=== PATIENT | female | born 1980 | race Caucasian/White ===

== ENCOUNTER 2024-06-12 20:45 | Inpatient (IN) | payer BC, SELFPAY ==
[2024-06-12 20:58] VITALS: BP 152/84; PULSE 85; RESP 18; TEMP 37.2; O2SAT 97; BMI 31.6
[2024-06-12] MEDS: ONDANSETRON 4 MG/2 ML INJ IV (21:30)
[2024-06-12] MEDS: KETOROLAC 30 MG/ML VIAL 15 MG IV (21:31)
[2024-06-12 21:33] LABS: Add Manual Diff / Slide Review NO; Basophils Absolute Auto 0 /uL (0-100); Basophils Percent Auto 0.3 % (0-2); Eosinophils Absolute Auto 0 /uL (0-450); Eosinophils Percent Auto 0.1 % (2-4); Hematocrit 43.6 % (36-46); Hemoglobin 14.6 g/dL (12.0-16.0); Lymphocytes Absolute Auto 1400 /uL (1100-4500); Lymphocytes Percent Auto 8.6 % (25-40); Mean Corpuscular HGB Conc 33.4 % (30-36); Mean Corpuscular Hemoglobin 29.2 PG (26-34); Mean Corpuscular Volume 87.4 fL (80-100); Monocytes Absolute Auto 400 /uL (0-900); Monocytes Percent Auto 2.6 % (3-14); Neutrophils Absolute Auto 14000 /uL (1500-7000); Neutrophils Percent Auto 88.4 % (50-75); Platelet Count 480 X10^3/uL (150-400); Red Blood Cell Count 4.99 X10^6/uL (4.0-5.2); Red Cell Distribution Width 13.2 % (11.6-14.8); White Blood Cell Count 15.9 X10^3/uL (4.5-11.0)
[2024-06-12 21:44] LABS: Alanine Aminotransferase 28 IU/L (<35); Albumin 4.7 g/dL (3.5-5.0); Albumin Globulin Ratio 1.2 (1.0-2.8); Alkaline Phosphatase 98 U/L (38-126); Aspartate Aminotransferase 30 IU/L (14-36); BUN Creatinine Ratio 21.7 (6-22); Bilirubin Total 0.7 mg/dL (0.2-1.3); Blood Urea Nitrogen 15 mg/dL (7-17); Calcium 9.2 mg/dL (8.4-10.2); Carbon Dioxide 22 mmol/L (22-32); Chloride 101 mmol/L (98-107); Estimated Glomerular Filt Rate > 60 mL/min (>60); Globulin 3.9 g/dL (1.7-4.1); Glucose 132 mg/dL (70-100); HEMOLYSIS < 15 (0-50); Lipase 42 U/L (23-300); Potassium 3.8 mmol/L (3.4-5.1); Sodium 137 mmol/L (137-145); Total Protein 8.6 g/dL (6.3-8.2)
[2024-06-12 21:54] LABS: Bacteria Urine Few (2-10); RBC Urine 0-1/HPF (0-5/HPF); Squamous Epithelial Cell Urine 0-1 /HPF (0-5/HPF); Urine Volume 10mL (spun); WBC Urine 0-1/HPF (0-5/HPF)
[2024-06-12 21:55] LABS: Culture Indicated Urine Cult Not Indicated; Mucus Urine 2+ (Negative)
[2024-06-12 23:02] VITALS: BP 118/80; PULSE 100; RESP 18; O2SAT 99
--- NOTE | 2024-06-12 23:11 | DI.CT.S_ITS ---
PROCEDURE: CT ABDOMEN PELVIS W CON INDICATIONS: abdominal pain with nausea/vomiting TECHNIQUE: After the administration of intravenous contrast, axial sections acquired from the lung bases to the pubic symphysis. Coronal and sagittal reformats were performed. For radiation dose reduction, the following was used: automated exposure control, adjustment of mA and/or kV according to patient size. COMPARISON: None. FINDINGS: Image quality: Diagnostic. Peritoneum: No pneumoperitoneum or ascites. Bones: No acute osseous abnormality. Lower Chest: Small-moderate hiatal hernia. Liver: Normal in size and contour. Gallbladder: No stones or pericholecystic fluid. Biliary tree: No intrahepatic or extrahepatic biliary ductal dilatation. Pancreas: Within normal limits. Spleen: Normal in size and contour. Kidneys: No hydronephrosis or obstructive urolithiasis. Adrenals: No adrenal nodularity. Bladder: Normal in size and wall thickness. : Anteverted uterus with endometrial fluid, likely physiologic. Heterogenous posterior myometrium, likely secondary to intramural fibroids (5/80). Right 2.6 cm Bartholin gland cyst (2/160). Stomach: Normal in size and contour. Bowel: Multiple fluid-filled and dilated small bowel loops up to the 2.5 cm with transition points in the right central abdomen (2/88; 4/50-51). There is a C-shaped loop of small bowel in the right lower quadrant with adjacent mesenteric edema. No bowel wall non enhancement. Appendix surgically absent. Lymph Nodes: No retroperitoneal, mesenteric, or inguinal lymphadenopathy. Vascular: No abdominal aortic aneurysm. The visualized arterial vasculature is patent. Soft Tissues: 3.9 cm right breast lobulated mass (2/20). IMPRESSION: 1. Small-bowel obstruction with transition points in the right central abdomen, along with a possible, developing closed-loop obstruction in the right lower quadrant. 2. Small-moderate hiatal hernia. 3. Right breast 3.9 cm lobulated mass. Diagnostic mammogram and or ultrasound would be recommended for further evaluation. These findings were communicated via telephone to the ordering provider Dr. Peterson, by Jacob Bishop MD on 06/13/2024 at 12:51 a.m.. Dictated by: Jacob Bishop M.D. on 06/13/2024 at 0:42 Approved by: Jacob Bishop M.D. on 06/13/2024 at 0:51
[2024-06-13] VITALS (21 sets, daily range): BP systolic 119–155; BP diastolic 60–94; PULSE 75–136; RESP 10–18; TEMP 37–37.3; O2SAT 92–98; BMI 32.8
--- NOTE | 2024-06-13 | DI.RAD.S_ITS ---
PROCEDURE: XR GASTROGRAFIN CHALLENGE COMPARISON: None. INDICATIONS: SBO FINDINGS: NG tube present. There is contrast opacifying the partially distended stomach. There are numerous loops of distended small bowel which are opacified. There is no passage of contrast into the colon. IMPRESSION: No evidence of passage of contrast into the colon. This may indicate early, partial, or complete small bowel obstruction. Consider follow-up plain film in the morning. Dictated by: Tianna López M.D. on 06/13/2024 at 18:08 Approved by: Tianna López M.D. on 06/13/2024 at 18:09
--- NOTE | 2024-06-13 01:26 | ED.ABDPAIN ---
HPI - Abdominal Pain General Chief Complaint: Abdominal Pain Stated Complaint: abd pain vomiting Time Seen by Provider: 06/12/24 23:42 Source: patient Mode of arrival: Ambulatory History of Present Illness HPI narrative: 44-year-old female has nausea and vomiting and central abdominal pain since early yesterday morning, now approaching 26 hours, earlier yesterday morning was seen and evaluated at emergency department [facility], per their report had ultrasound of the gallbladder and some labs which were unrevealing. Since then patient has had increasing abdominal discomfort, and more frequent nausea with emesis nonbloody, no black appearance to emesis, last bowel movement yesterday, no black or red stools. No fevers or chills. No injury or trauma. She does not take blood thinner medications. She has had prior appendectomy 25 years ago, otherwise denies any abdominopelvic surgeries. Does not recall upper or lower endoscopies. Related Data Home Medications Medication Instructions Recorded Confirmed Adderall XR 15 mg PO DAILY 06/13/24 06/13/24 Allergies Allergy/AdvReac Type Severity Reaction Status Date / Time No Known Drug Allergies Allergy Unverified 06/24/21 08:41 Patient History Medical History (Updated 06/13/24 @ 00:53 by Osmany Peterson MD) PTSD (post-traumatic stress disorder) (~2008) Anxiety (~2019) Surgical History (Updated 06/23/21 @ 19:03 by Esther Saenz) Anesthesia History of appendectomy (~1994) Family History (Updated 06/23/21 @ 19:04 by Esther Saenz) Grandfather Skin cancer Grandfather Stroke Social History household members: spouse Smoking Status: Current every day smoker alcohol intake: current Smoking Status: Current every day smoker tobacco type: vaping Exam Narrative Exam Narrative: GENERAL: Well-developed patient, in mild distress. HEAD: Atraumatic. Normocephalic. EYES: Pupils equal round and reactive. Extraocular motions intact. No scleral icterus. No injection or drainage. ENT: Nose without bleeding, purulent drainage.No obvious facial swelling. Airway patent. NECK: Trachea midline. Non tender CARDIOVASCULAR: Regular rate and rhythm without murmurs, gallops, or rubs. RESPIRATORY: Clear to auscultation. Breath sounds equal bilaterally. No wheezes, rales, or rhonchi. GASTROINTESTINAL: Abdomen soft, nondistended, mild diffuse tenderness, no obvious vental hernias, no scars obvious though she has reportedly has had her appendix out long ago. EXTREMITIES: No edema or joint tenderness. BACK: Nontender without deformity or crepitance. No flank tenderness. NEURO: AOx3. Motor functions grossly nonfocal SKIN: No rash or erythema of visible areas Initial Vital Signs Initial Vital Signs: Vital Signs Temperature 98.9 F 06/12/24 20:58 Pulse Rate 85 06/12/24 20:58 Respiratory Rate 18 06/12/24 20:58 Blood Pressure 152/84 H 06/12/24 20:58 Pulse Oximetry 97 06/12/24 20:58 Oxygen Delivery Method Room Air 06/12/24 20:58 Course Orders Ordered: Acetaminophen (Acetaminophen 325 Mg Tablet) 650 mg PO Q6H PRN PRN Reason: Fever/Mild Pain (1-3) Benzocaine/Butamben/Tetracaine HCl (Tetracaine/Benzocaine/Butamben (Cetacaine) Bottle) 1 spray TOP PRN PRN PRN Reason: Sore Throat Hydromorphone HCl (Hydromorphone 0.5 Mg Inj) 0.5 mg IV Q2H PRN PRN Reason: Pain, Severe (7-10) Last Admin: 06/13/24 15:36 Dose: 0.5 mg Documented By: KAYLAN Sodium Chloride (Normal Saline 0.9%) 1,000 mls @ 100 mls/hr IV CONT DARRIAN Last Infusion: 06/13/24 13:44 Dose: Infused Documented By: Infusion: 06/13/24 13:43 Dose: Infused Documented By: Admin: 06/13/24 03:20 Dose: 100 mls/hr Documented By: JACQUELYN Ketorolac Tromethamine (Ketorolac 30 Mg/Ml Vial) 15 mg IV Q8H PRN PRN Reason: Pain, Moderate (4-6) Stop: 06/18/24 14:57 Last Admin: 06/13/24 15:36 Dose: 15 mg Documented By: ESV Lidocaine HCl (Lidocaine Viscous 2% 15 Ml Solution) 15 ml PO Q8HR PRN PRN Reason: Sore Throat Last Admin: 06/13/24 09:12 Dose: 15 ml Documented By: NIKKI Morphine Sulfate (Morphine 4 Mg/Ml Inj) 3 mg IV Q2HR PRN PRN Reason: Pain, Severe (7-10) Last Admin: 06/13/24 09:12 Dose: 3 mg Documented By: Admin: 06/13/24 02:39 Dose: 3 mg Documented By: Morphine Sulfate (Morphine 2 Mg/Ml Inj) 2 mg IV Q4HR PRN PRN Reason: Pain, Moderate (4-6) Last Admin: 06/13/24 13:30 Dose: 2 mg Documented By: Admin: 06/13/24 06:18 Dose: 2 mg Documented By: JACQUELYN Naloxone HCl (Naloxone 0.4 Mg/Ml Vial) 0.2 mg IV Q2MIN PRN PRN Reason: Pain, Severe (7-10) Ondansetron HCl (Ondansetron 4 Mg/2 Ml Inj) 4 mg IV Q2HR PRN PRN Reason: nausea and/or vomiting Discontinued Medications Hydromorphone HCl (Hydromorphone 0.5 Mg Inj) 0.5 mg IV NOW ONE Stop: 06/13/24 02:19 Last Admin: 06/13/24 03:26 Dose: 0.5 mg Documented By: JACQUELYN Sodium Chloride (Normal Saline 0.9%) 1,000 mls @ 1,000 mls/hr IV BOLUS ONE Stop: 06/13/24 03:21 Last Admin: 06/13/24 03:30 Dose: Not Given Documented By: JACQUELYN Ketorolac Tromethamine (Ketorolac 30 Mg/Ml Vial) 15 mg IV NOW ONE Stop: 06/12/24 21:28 Last Admin: 06/12/24 21:31 Dose: 15 mg Documented By: TAYO Lidocaine HCl (Lidocaine Jelly 2% 5 Ml) 1 applic TOP PRN PRN PRN Reason: Pain, Mild (1-3) Lorazepam (Lorazepam 2 Mg/Ml Inj) 1 mg IV NOW ONE Stop: 06/13/24 01:33 Last Admin: 06/13/24 01:55 Dose: 1 mg Documented By: Naloxone HCl (Naloxone 0.4 Mg/Ml Vial) 0.2 mg IV Q2MIN PRN PRN Reason: Opiate Reversal Ondansetron HCl (Ondansetron 4 Mg/2 Ml Inj) 4 mg IV NOW PRN PRN Reason: Nausea And Vomiting Last Admin: 06/12/24 21:30 Dose: 4 mg Documented By: TAYO Ondansetron HCl (Ondansetron 4 Mg Odt) 4 mg PO NOW PRN PRN Reason: Nausea And Vomiting Ondansetron HCl (Ondansetron 4 Mg/2 Ml Inj) 4 mg IV Q8HR PRN PRN Reason: Nausea And Vomiting Last Admin: 06/13/24 09:12 Dose: 4 mg Documented By: NIKKI Ondansetron HCl (Ondansetron 4 Mg/2 Ml Inj) 4 mg IV NOW ONE Stop: 06/13/24 13:48 Last Admin: 06/13/24 14:44 Dose: 4 mg Documented By: NIKKI Vital Signs Vital signs: Vital Signs - 8 hr 06/12/24 20:58 06/12/24 23:02 06/13/24 01:15 Temperature 98.9 F Pulse Rate 85 100 H Respiratory Rate 18 18 Blood Pressure 152/84 H 118/80 Pulse Oximetry 97 99 98 Oxygen Delivery Method Room Air Room Air 06/13/24 01:16 06/13/24 01:16 06/13/24 01:30 Temperature Pulse Rate 122 H 97 H Respiratory Rate Blood Pressure 155/91 H Pulse Oximetry 97 97 Oxygen Delivery Method 06/13/24 01:30 06/13/24 02:22 06/13/24 02:22 Temperature Pulse Rate 136 H Respiratory Rate 18 Blood Pressure 144/81 H 132/81 Pulse Oximetry 93 Oxygen Delivery Method 06/13/24 02:23 Temperature Pulse Rate 132 H Respiratory Rate Blood Pressure Pulse Oximetry 93 Oxygen Delivery Method Room Air MDM - Abdominal Pain Lab Data Attestation: I reviewed the patient's lab results. Lab results narrative: White blood cell count 86821, hemoglobin 14.6, platelets 480,000. Basic metabolic panel unremarkable. BUN 15 with creatinine 0.69 normal. Liver functions lactate normal. Urinalysis negative for infection but shows ketones without glucosuria. Urine test negative. 06/13/24 05:55 06/13/24 05:55 Labs: Lab Results 06/12/24 06/12/24 06/13/24 Range/Units 21:25 21:36 00:15 WBC 15.9 H (4.5-11.0) X10^3/uL RBC 4.99 (4.0-5.2) X10^6/uL Hgb 14.6 (12.0-16.0) g/dL Hct 43.6 (36-46) % MCV 87.4 (80-100) fL MCH 29.2 (26-34) PG MCHC 33.4 (30-36) % RDW 13.2 (11.6-14.8) % Plt Count 480 H (150-400) X10^3/uL Neut % (Auto) 88.4 H (50-75) % Lymph % (Auto) 8.6 L (25-40) % [place] % (Auto) 2.6 L (3-14) % Eos % (Auto) 0.1 L (2-4) % Baso % (Auto) 0.3 (0-2) % Neut # (Auto) 61445 H (8917-8417) /uL Lymph # (Auto) 1400 (3085-4209) /uL [place] # (Auto) 400 (0-900) /uL Eos # (Auto) 0 (0-450) /uL Baso # (Auto) 0 (0-100) /uL Sodium 137 (137-145) mmol/L Potassium 3.8 (3.4-5.1) mmol/L Chloride 101 (98-107) mmol/L Carbon Dioxide 22 (22-32) mmol/L BUN 15 (7-17) mg/dL Creatinine 0.69 (0.52-1.04) mg/dL Estimated GFR > 60 (>60) mL/min BUN/Creatinine Ratio 21.7 (6-22) Glucose 132 H (70-100) mg/dL Lactate 1.0 (0.7-2.1) mmol/L Calcium 9.2 (8.4-10.2) mg/dL Total Bilirubin 0.7 (0.2-1.3) mg/dL AST 30 (14-36) IU/L ALT 28 (<35) IU/L Alkaline Phosphatase 98 (38-126) U/L Total Protein 8.6 H (6.3-8.2) g/dL Albumin 4.7 (3.5-5.0) g/dL Globulin 3.9 (1.7-4.1) g/dL Albumin/Globulin Ratio 1.2 (1.0-2.8) Lipase 42 (23-300) U/L Urine RBC 0-1/hpf (0-5/HPF) Urine WBC 0-1/hpf (0-5/HPF) Ur Squamous Epith Cells 0-1 /hpf (0-5/HPF) Urine Bacteria Few (2-10) H (None) Urine Mucus 2+ H (Negative) Ur Culture Indicated? Cult not indicated Vol Urine Centrifuged 10ml (spun) Point of care testing: Point of Care Testing Test Results Negative Urine Dip Bedside Urine Glucose Negative Bedside Urine Bilirubin - Negative Bedside Urine Ketone +++ 80 Urine Specific [place] 1.03 Bedside Urine Occult Blood +/- Bedside Urine pH 6 Bedside Urine Protein + 30 Bedside Urine Urobilinogen - Negative Bedside Urine Nitrite - Negative Bedside Urine Leukocytes - Negative Esterase Imaging Data CT scan - abdomen/pelvis: Radiologist's Impression: [address] [address] [address] Scan Report Signed Patient: Edna Medina MR#: [id number] : 1980 Acct:[id number] Age/Sex: 44 / F Date of Service: 06/12/24 Loc: ED Accession Number: [id number] Procedure: CT abdomen pelvis w con Ordering Provider: Osmany Peterson MD PROCEDURE: CT ABDOMEN PELVIS W CON INDICATIONS: abdominal pain with nausea/vomiting TECHNIQUE: After the administration of intravenous contrast, axial sections acquired from the lung bases to the pubic symphysis. Coronal and sagittal reformats were performed. For radiation dose reduction, the following was used: automated exposure control, adjustment of mA and/or kV according to patient size. COMPARISON: None. FINDINGS: Image quality: Diagnostic. Peritoneum: No pneumoperitoneum or ascites. Bones: No acute osseous abnormality. Lower Chest: Small-moderate hiatal hernia. Liver: Normal in size and contour. Gallbladder: No stones or pericholecystic fluid. Biliary tree: No intrahepatic or extrahepatic biliary ductal dilatation. Pancreas: Within normal limits. Spleen: Normal in size and contour. Kidneys: No hydronephrosis or obstructive urolithiasis. Adrenals: No adrenal nodularity. Bladder: Normal in size and wall thickness. : Anteverted uterus with endometrial fluid, likely physiologic. Heterogenous posterior myometrium, likely secondary to intramural fibroids (5/80). Right 2.6 cm Bartholin gland cyst (2/160). Stomach: Normal in size and contour. Bowel: Multiple fluid-filled and dilated small bowel loops up to the 2.5 cm with transition points in the right central abdomen (; /50-51). There is a C-shaped loop of small bowel in the right lower quadrant with adjacent mesenteric edema. No bowel wall non enhancement. Appendix surgically absent. Lymph Nodes: No retroperitoneal, mesenteric, or inguinal lymphadenopathy. Vascular: No abdominal aortic aneurysm. The visualized arterial vasculature is patent. Soft Tissues: 3.9 cm right breast lobulated mass (06/14). IMPRESSION: 1. Small-bowel obstruction with transition points in the right central abdomen, along with a possible, developing closed-loop obstruction in the right lower quadrant. 2. Small-moderate hiatal hernia. 3. Right breast 3.9 cm lobulated mass. Diagnostic mammogram and or ultrasound would be recommended for further evaluation. These findings were communicated via telephone to the ordering provider Dr. Peterson, by Jacob Bishop MD on 06/13/2024 at 12:51 a.m.. Dictated by: Jacob Bishop M.D. on 06/13/2024 at 0:42 Approved by: Jacob Bishop M.D. on 06/13/2024 at 0:51 MDM Narrative Medical decision making narrative: 44-year-old female with nausea and vomiting, abdominal pain, evaluated outside facility yesterday morning with ultrasound gallbladder and labs reportedly unrevealing, having increasing abdominal pain and recurrent episodes of nonbloody emesis. Afebrile, sirs screen negative. Central abdominal discomfort, no obvious periumbilical or ventral hernia. Labs pending. CT abdomen and pelvis requested. IV Zofran, IV fluid bolus. Lab summary: White blood cell count 65991, hemoglobin 14.6, platelets 480,000. Basic metabolic panel unremarkable. BUN 15 with creatinine 0.69 normal. Liver functions lactate normal. Urinalysis negative for infection but shows ketones without glucosuria. Urine test negative. Lactate normal. CT abdomen and pelvis. Impressions: ?Small bowel obstruction with transition points in the right central abdomen, along with a possible developing closed loop obstruction in the right lower quadrant. Small moderate hiatal hernia. Right breast 3.9 cm lobulated mass. Diagnostic mammogram or ultrasound would be recommended for further evaluation..? See radiology report. Lactate sent was normal. NG tube placed successfully with brown liquid fluid. Still having nausea, also we would like something for pain, repeat IV Zofran, add IV Dilaudid. We will contact surgery for consultation. Patient made aware of right-sided breast mass, history of fibroadenoma known, they will follow up further. 219, case discussed with surgery Dr. Hanna, requests admission to hospitalist service with NG tube, he or Dr. Hernandez surgery will further consult. We will contact hospitalist [phone], case discussed with hospitalist Dr Ortiz who accepts patient for admission to inpatient Critical Care Time Critical Care Time Critical Care Time: Yes Total Critical Care Time: 35 Attestation: The high probability of a clinically significant, sudden or life threatening deterioration of the [gastrointestinal, abdominopelvic] system(s) required my full and direct attention, intervention and personal management. The aggregate critical care time was [35] minutes. This time is in addition to time spent performing reported procedures but includes the following: [x] Data Review and interpretation [x] Patient assessment and monitoring of vital signs [x] Documentation [x] Medication orders and management Discharge Plan Departure Patient Disposition: Admitted As Inpatient Clinical Impression: Small bowel obstruction, Breast lesion Admit Date/Time: 06/13/24 02:31 Admit Provider: Evaristo Ortiz
--- NOTE | 2024-06-13 01:37 | DI.RAD.S_ITS ---
PROCEDURE: XR CHEST 1V INDICATIONS: NG placement TECHNIQUE: One view of the chest was acquired. COMPARISON: None. FINDINGS: Surgical changes and devices: Gastric tube side port projects over the GE junction. Lungs and pleura: Lungs are clear. No pleural effusions or pneumothorax. Mediastinum: Mediastinal contours appear normal. Heart size is normal. Bones and chest wall: No suspicious bony lesions. Overlying soft tissues appear unremarkable. IMPRESSION: Gastric tube side port projects over the GE junction. Recommend advancement by 5 cm. Agree with preliminary report. Dictated by: Hever Cochran M.D. on 06/13/2024 at 8:53 Approved by: Hever Cochran M.D. on 06/13/2024 at 8:54
[2024-06-13] MEDS: LORazepam 2 MG/ML INJ 1 MG IV (01:55)
[2024-06-13] MEDS: MORPHINE 4 MG/ML INJ 3 MG IV ×2 (02:39→09:12)
--- NOTE | 2024-06-13 02:39 | DI.RAD.S_ITS ---
PROCEDURE: XR CHEST 1V INDICATIONS: ng confirmation TECHNIQUE: One view of the chest was acquired. COMPARISON: [facility], , XR CHEST 1V, 06/13/2024, 1:35. FINDINGS: Surgical changes and devices: Enteric tube with tip and side port projecting over the expected location of the stomach. Lungs and pleura: Lungs are clear. No pleural effusions or pneumothorax. Mediastinum: Mediastinal contours appear normal. Heart size is normal. Bones and chest wall: No suspicious bony lesions. Overlying soft tissues appear unremarkable. IMPRESSION: Enteric tube with tip and side port projecting over the expected location of the stomach. Dictated by: Jered Salinas M.D. on 06/13/2024 at 9:20 Approved by: Jered Salinas M.D. on 06/13/2024 at 9:21
[2024-06-13] MEDS: SODIUM CHLORIDE 0.9% 1,000 ML 100 ML IV ×2 (03:20→22:45)
--- NOTE | 2024-06-13 03:25 | DI.RAD.S_ITS ---
PROCEDURE: XR CHEST 1V INDICATIONS: NG placement TECHNIQUE: One view of the chest was acquired. COMPARISON: [facility], CR, XR CHEST 1V, 06/13/2024, 2:38. [facility], CR, XR CHEST 1V, 06/13/2024, 1:35. FINDINGS: Surgical changes and devices: Enteric tube with tip and side port projecting over the expected location of the stomach. Lungs and pleura: Lungs are clear. No pleural effusions or pneumothorax. Mediastinum: Mediastinal contours appear normal. Heart size is normal. Bones and chest wall: No suspicious bony lesions. Overlying soft tissues appear unremarkable. IMPRESSION: Enteric tube appears appropriately position. No acute cardiopulmonary process. Findings are concordant with preliminary interpretation provided by [facility]. Dictated by: Jered Salinas M.D. on 06/13/2024 at 9:21 Approved by: Jered Salinas M.D. on 06/13/2024 at 9:22
[2024-06-13] MEDS: HYDROMORPHONE 0.5 MG INJ IV ×3 (03:26→17:39)
--- NOTE | 2024-06-13 04:19 | PC.NURSE ---
0300 Patient admitted room 212 accompanied by her spouse Kevin. Diagnosed with SBO, ER July RN. Called to advance NGT to 5-7 cm. Jorge ST[employer]BOARD ARTIST came to assist & he advanced NGT to 5 cm & CXR done. C/O pain 11/01 even after the Morphine in ER. 0.5 mg. Dilaudid admin. & reported pain is improving with Dilaudid. Having difficulty speaking due to NGT, given a white board to communicate with the staff. Oriented to her room call light, TV & bed controls. Instructed not not get OOB without any assistance, call light within reached. Denies any fall for the past 3 months, will continue POC & monitor.
--- NOTE | 2024-06-13 05:46 | PM.HP.1 ---
History of Present Illness History of Present Illness Chief complaint: abd pain vomiting Narrative: 44-year-old female with past medical history of appendectomy done 25 years ago and a known right breast mass presents with a complaint of nausea, vomiting and abdominal pain. Per the patient's report, the patient was seen at [facility] ER yesterday. The patient had an ultrasound the gallbladder and some lab work which were reported as to be negative. The patient went home and continue have nausea non bloody vomiting as well as abdominal pain. The patient denies any fever, GI bleed, nausea chest pain, shortness of breath, diarrhea or syncope. In the emergency room, the patient was hemodynamically stable. Labs shows a WBC of 15,[address] abdomen shows signs of small bowel obstruction. The patient was given IV fluid and IV antibiotic emetics. General surgery consulted and recommended to admit the patient here. NG tube was also placed. [facility] Medical History (Updated 06/13/24 @ 00:53 by Osamny Peterson MD) PTSD (post-traumatic stress disorder) (~2008) Anxiety (~2019) Surgical History (Updated 06/23/21 @ 19:03 by Esther Saenz) Anesthesia History of appendectomy (~1994) Family History (Updated 06/23/21 @ 19:04 by Esther Saenz) Grandfather Skin cancer Grandfather Stroke Social History household members: spouse Smoking Status: Current every day smoker alcohol intake: current Meds Home Medications and Allergies Home Medications Medication Instructions Recorded Confirmed Type Adderall XR 15 mg PO DAILY 06/13/24 06/13/24 History Allergies Allergy/AdvReac Type Severity Reaction Status Date / Time No Known Drug Allergies Allergy Unverified 06/24/21 08:41 Review of Systems Review of Systems ROS: Yes All systems reviewed with the patient and are negative except as otherwise documented Exam Vital Signs (past 8 hours): - 06/12/24 23:02 06/13/24 01:15 06/13/24 01:16 Temperature Pulse Rate 100 H 122 H Respiratory Rate 18 Blood Pressure 118/80 Pulse Oximetry 99 98 97 Oxygen Delivery Method Room Air 06/13/24 01:16 06/13/24 01:30 06/13/24 01:30 Temperature Pulse Rate 97 H Respiratory Rate 18 Blood Pressure 155/91 H 144/81 H Pulse Oximetry 97 Oxygen Delivery Method 06/13/24 02:22 06/13/24 02:22 06/13/24 02:23 Temperature Pulse Rate 136 H 132 H Respiratory Rate Blood Pressure 132/81 Pulse Oximetry 93 93 Oxygen Delivery Method Room Air 06/13/24 03:00 Temperature 99.1 F Pulse Rate 117 H Respiratory Rate 18 Blood Pressure 136/81 Pulse Oximetry 94 Oxygen Delivery Method Oxygen Delivery Method Room Air Narrative Exam Narrative: Physical Exam: GENERAL: The patient is not in any acute distressed. Awake and alert. NGT in placed. HEENT: Nonicteric sclerae, PERRLA, EOMI. Oropharynx clear. Moist mucous membranes. Conjunctivae appear well perfused. HEART: Regular rate and rhythm without murmurs. No lower extremities edema. LUNGS: Clear to auscultation bilaterally. No wheezing, crackles or rhonchi ABDOMEN: Soft, positive bowel sounds, nontender. SKIN: No rash, no excessive bruising, petechiae, or purpura. NEUROLOGIC: AxO x 3. Cranial nerves II-XII intact without motor/sensory deficit. Objective Labs 06/12/24 21:25 06/12/24 21:25 Labs: Laboratory Results - last 24 hr 06/12/24 06/12/24 06/13/24 21:25 21:36 00:15 WBC 15.9 H RBC 4.99 Hgb 14.6 Hct 43.6 MCV 87.4 MCH 29.2 MCHC 33.4 RDW 13.2 Plt Count 480 H Neut % (Auto) 88.4 H Lymph % (Auto) 8.6 L [place] % (Auto) 2.6 L Eos % (Auto) 0.1 L Baso % (Auto) 0.3 Neut # (Auto) 68034 H Lymph # (Auto) 1400 [place] # (Auto) 400 Eos # (Auto) 0 Baso # (Auto) 0 Sodium 137 Potassium 3.8 Chloride 101 Carbon Dioxide 22 BUN 15 Creatinine 0.69 Estimated GFR > 60 BUN/Creatinine Ratio 21.7 Glucose 132 H Lactate 1.0 Calcium 9.2 Total Bilirubin 0.7 AST 30 ALT 28 Alkaline Phosphatase 98 Total Protein 8.6 H Albumin 4.7 Globulin 3.9 Albumin/Globulin Ratio 1.2 Lipase 42 Urine RBC 0-1/hpf Urine WBC 0-1/hpf Ur Squamous Epith Cells 0-1 /hpf Urine Bacteria Few (2-10) H Urine Mucus 2+ H Ur Culture Indicated? Cult not indicated Vol Urine Centrifuged 10ml (spun) Assessment & Plan Assessment & Plan narrative: Small bowel obstruction. Admit the patient to medical inpatient. NPO. IV fluid. Antiemetics by IV as needed. Continue NG tube suctioning. Appreciate general surgery input and management. Leukocytosis. Likely stress induced by small bowel obstruction. No clear signs of infection. Monitor at this time. Right 3.9 cm breast mass. Per the patient's report the patient states that she is aware of this mass. Recommendation is to follow-up as outpatient. DVT dehydration. IV fluid. DVT prophylaxis SCDs and early ambulation. Code CODE STATUS full code. Disposition likely home in 2 to 3 days Time-Based Coding :: [TOTAL MINUTES] spent with patient and on the chart (including review of chart, obtaining history, exam, reviewing outside data, placing orders, documenting exam and treatment plan, and counseling patient) on [DATE]. Quality VTE Deep Vein Thrombosis/Pulmonary Embolism Present on Admission: No
[2024-06-13] MEDS: MORPHINE 2 MG/ML INJ IV ×2 (06:18→13:30)
[2024-06-13 06:27] LABS: Add Manual Diff / Slide Review NO; Basophils Absolute Auto 100 /uL (0-100); Basophils Percent Auto 0.7 % (0-2); Eosinophils Absolute Auto 0 /uL (0-450); Eosinophils Percent Auto 0.1 % (2-4); Hematocrit 39.3 % (36-46); Hemoglobin 13.2 g/dL (12.0-16.0); Lymphocytes Absolute Auto 1900 /uL (1100-4500); Lymphocytes Percent Auto 12.7 % (25-40); Mean Corpuscular HGB Conc 33.7 % (30-36); Mean Corpuscular Hemoglobin 29.6 PG (26-34); Mean Corpuscular Volume 87.7 fL (80-100); Monocytes Absolute Auto 800 /uL (0-900); Monocytes Percent Auto 5.7 % (3-14); Neutrophils Absolute Auto 11800 /uL (1500-7000); Neutrophils Percent Auto 80.8 % (50-75); Platelet Count 424 X10^3/uL (150-400); Red Blood Cell Count 4.48 X10^6/uL (4.0-5.2); Red Cell Distribution Width 13.5 % (11.6-14.8); White Blood Cell Count 14.6 X10^3/uL (4.5-11.0)
[2024-06-13 06:37] LABS: BUN Creatinine Ratio 25.3 (6-22); Blood Urea Nitrogen 19 mg/dL (7-17); Calcium 9.3 mg/dL (8.4-10.2); Carbon Dioxide 24 mmol/L (22-32); Chloride 101 mmol/L (98-107); Estimated Glomerular Filt Rate > 60 mL/min (>60); Glucose 118 mg/dL (70-100); HEMOLYSIS < 15 (0-50); Potassium 3.7 mmol/L (3.4-5.1); Sodium 139 mmol/L (137-145)
--- NOTE | 2024-06-13 08:19 | CM.DANOTE ---
Initial DCP Assessment Visit Note Reviewed EMR and spoke directly with patient regarding patient's medical status and updates. Met with patient at bedside to introduce self and role. Patient was alert and oriented. Patient was struggling to speak audibly due discomfort related to nasogastric tube. She wrote on a dry erase board to communicate with me. Patient resides at home and lives independently at baseline. Plan is to discharge home after hospitalization. Patient usually self transports and her spouse can help with transportation as needed. Payor: [facility] PCP: Dr Crista Vasquez Patient is a 44 year old female who presented to the ER on 06/13/24 for several days of abdominal pain, nausea, and vomiting. At the ER CT scans showed small bowel obstruction, hiatal hernia, and a breast mass which patient was already aware of. A nasogastric tube was placed. Patient is currently NPO in preparation to see surgery today. Patient said the nasogastric tube was very uncomfortable for her. I spoke to her nurse Latosha about this. Latosha said she would speak to the Dr about helping to get patient more comfortable this morning. No discharge needs identified. DCP will continue to monitor for needs in relation to transitioning home. Discharge Planning/Care Management CM Discharge Assessment Start: 06/13/24 08:16 Freq: Status: Active Protocol: Document 06/13/24 08:16 MARIA L (Rec: 06/13/24 08:19 MARIA L [id number]) Discharge Planning Assessment Assigned Hand Coper Les Quinones RN DPOA/Assigned Designee Name None Advance Directives? No Advance Directives on File No History Provided By Patient,Family Member Expected Length of Stay 2 Has Patient been admitted in last 30 No days? Prior Living Arrangements House Household Members spouse Type of transporation used prior to Drives own vehicle admit Comment Patient's spouse is able to transport her if she is unable to drive herself. Independent with ADL's Yes Is patient alert and oriented? Yes Comment No assistance needed. Caregiver for Another Yes: Patient helps take care of her aunt and uncle. Comment None. Comment None. Comment No discharge needs expected. Barriers to Discharge No Discharge Plan Home Transportation Arrangement Patient will self transport or her spouse can transport. Referrals Initiated None needed Inpatient Status as of 06/13/24 Whiteboard Updated in Patient Room with Yes name and ext. # of Hand Coper Review Status In Process Please Provide Date Initial DC 06/13/24 Assessment Was Performed
[2024-06-13] MEDS: LIDOCAINE VISCOUS 2% 15 ML SOLUTION PO (09:12)
[2024-06-13] MEDS: ONDANSETRON 4 MG/2 ML INJ IV ×4 (09:12→20:12)
[2024-06-13] MEDS: KETOROLAC 30 MG/ML VIAL 15 MG IV (15:36)
--- NOTE | 2024-06-13 17:27 | PM.CN.IH.1 ---
History of Present Illness Consult details Date Patient Seen: 06/13/24 Time Patient Seen: 17:27 Chief complaint: abd pain vomiting Narrative: 44 year old woman who suddenly developed abdominal pain, nausea and vomiting about 36 hours ago. No BM or flatus during that time. She has a past surgical history of an open appendectomy. CT in the ER here showed a small bowel obstruction with a transition point in the right lower quadrant and possible closed loop obstruction. No history of prior bowel obstructions. Meds Home Medications and Allergies Home Medications Medication Instructions Recorded Confirmed Type Adderall XR 15 mg PO DAILY 06/13/24 06/13/24 History Allergies Allergy/AdvReac Type Severity Reaction Status Date / Time No Known Drug Allergies Allergy Unverified 06/24/21 08:41 Exam Vital Signs (past 8 hours): Oxygen Delivery Method Room Air Oxygen Flow Rate 0 Narrative Exam Narrative: NG tube is clamped Abdomen soft, moderately tender in the right lower quadrant Objective Labs 06/13/24 05:55 06/13/24 05:55 Labs: Laboratory Results - last 24 hr 06/12/24 06/12/24 06/13/24 21:25 21:36 00:15 WBC 15.9 H RBC 4.99 Hgb 14.6 Hct 43.6 MCV 87.4 MCH 29.2 MCHC 33.4 RDW 13.2 Plt Count 480 H Neut % (Auto) 88.4 H Lymph % (Auto) 8.6 L [place] % (Auto) 2.6 L Eos % (Auto) 0.1 L Baso % (Auto) 0.3 Neut # (Auto) 20152 H Lymph # (Auto) 1400 [place] # (Auto) 400 Eos # (Auto) 0 Baso # (Auto) 0 Sodium 137 Potassium 3.8 Chloride 101 Carbon Dioxide 22 BUN 15 Creatinine 0.69 Estimated GFR > 60 BUN/Creatinine Ratio 21.7 Glucose 132 H Lactate 1.0 Calcium 9.2 Total Bilirubin 0.7 AST 30 ALT 28 Alkaline Phosphatase 98 Total Protein 8.6 H Albumin 4.7 Globulin 3.9 Albumin/Globulin Ratio 1.2 Lipase 42 Urine RBC 0-1/hpf Urine WBC 0-1/hpf Ur Squamous Epith Cells 0-1 /hpf Urine Bacteria Few (2-10) H Urine Mucus 2+ H Ur Culture Indicated? Cult not indicated Vol Urine Centrifuged 10ml (spun) 06/13/24 05:55 WBC 14.6 H RBC 4.48 Hgb 13.2 Hct 39.3 MCV 87.7 MCH 29.6 MCHC 33.7 RDW 13.5 Plt Count 424 H Neut % (Auto) 80.8 H Lymph % (Auto) 12.7 L [place] % (Auto) 5.7 Eos % (Auto) 0.1 L Baso % (Auto) 0.7 Neut # (Auto) 31687 H Lymph # (Auto) 1900 [place] # (Auto) 800 Eos # (Auto) 0 Baso # (Auto) 100 Sodium 139 Potassium 3.7 Chloride 101 Carbon Dioxide 24 BUN 19 H Creatinine 0.75 Estimated GFR > 60 BUN/Creatinine Ratio 25.3 H Glucose 118 H Lactate Calcium 9.3 Total Bilirubin AST ALT Alkaline Phosphatase Total Protein Albumin Globulin Albumin/Globulin Ratio Lipase Urine RBC Urine WBC Ur Squamous Epith Cells Urine Bacteria Urine Mucus Ur Culture Indicated? Vol Urine Centrifuged [facility] Medical History (Updated 06/13/24 @ 00:53 by Osmany Peterson MD) PTSD (post-traumatic stress disorder) (~2008) Anxiety (~2019) Surgical History (Updated 06/23/21 @ 19:03 by Esther Saenz) Anesthesia History of appendectomy (~1994) Family History (Updated 06/23/21 @ 19:04 by Esther Saenz) Grandfather Skin cancer Grandfather Stroke Social History household members: spouse Tobacco & Substance Use Smoking Status: Current every day smoker alcohol intake: current Assessment & Plan Assessment and plan (1) Small bowel obstruction: Status: Acute Plan I discussed the findings on CT scan. I explained that it is likely an adhesive small bowel obstruction that may resolve with time but there is also a possibility that a segment of bowel could become ischemic from lack of blood flow. I recommended an exploratory laparotomy, possible small bowel resection. She would like to proceed. Time-Based Coding :: [TOTAL MINUTES] spent with patient and on the chart (including review of chart, obtaining history, exam, reviewing outside data, placing orders, documenting exam and treatment plan, and counseling patient) on [DATE]. PROFEE Charge Codes Inpatient or Observation consultation: 20081
[2024-06-13] MEDS: PIPERACILLIN/TAZO 4.5 GM in SODIUM CHLORIDE 0.9% 100 ML IV (17:59)
--- NOTE | 2024-06-13 18:26 | PM.PN.1 ---
Subjective Subjective Interval history: 44 F with PMH of open appy, admitted with bowel obstruction. Now going to the OR this evening, she had no passing of gas today. Gastrograffin showed persistent obstruction. Exam Vital Signs (past 8 hours): - 06/13/24 17:00 Temperature 98.7 F Pulse Rate 111 H Respiratory Rate 16 Blood Pressure 138/94 H Pulse Oximetry 93 Oxygen Flow Rate 0 Oxygen Delivery Method Room Air Oxygen Flow Rate 0 Narrative Exam Narrative: Physical Exam: GENERAL: NG in place, appears unfomortable, frequent shifting. HEENT: Nonicteric sclerae, PERRLA, EOMI. Oropharynx clear. Moist mucous membranes. Conjunctivae appear well perfused. HEART: Regular rate and rhythm without murmurs. No lower extremities edema. LUNGS: Clear to auscultation bilaterally. No wheezing, crackles or rhonchi ABDOMEN: Soft, positive bowel sounds, nontender. SKIN: No rash, no excessive bruising, petechiae, or purpura. NEUROLOGIC: AxO x 3. Cranial nerves II-XII intact without motor/sensory deficit. Objective Labs 06/13/24 05:55 06/13/24 05:55 Labs: Laboratory Results - last 24 hr 06/12/24 06/12/24 06/13/24 21:25 21:36 00:15 WBC 15.9 H RBC 4.99 Hgb 14.6 Hct 43.6 MCV 87.4 MCH 29.2 MCHC 33.4 RDW 13.2 Plt Count 480 H Neut % (Auto) 88.4 H Lymph % (Auto) 8.6 L [place] % (Auto) 2.6 L Eos % (Auto) 0.1 L Baso % (Auto) 0.3 Neut # (Auto) 47465 H Lymph # (Auto) 1400 [place] # (Auto) 400 Eos # (Auto) 0 Baso # (Auto) 0 Sodium 137 Potassium 3.8 Chloride 101 Carbon Dioxide 22 BUN 15 Creatinine 0.69 Estimated GFR > 60 BUN/Creatinine Ratio 21.7 Glucose 132 H Lactate 1.0 Calcium 9.2 Total Bilirubin 0.7 AST 30 ALT 28 Alkaline Phosphatase 98 Total Protein 8.6 H Albumin 4.7 Globulin 3.9 Albumin/Globulin Ratio 1.2 Lipase 42 Urine RBC 0-1/hpf Urine WBC 0-1/hpf Ur Squamous Epith Cells 0-1 /hpf Urine Bacteria Few (2-10) H Urine Mucus 2+ H Ur Culture Indicated? Cult not indicated Vol Urine Centrifuged 10ml (spun) 06/13/24 05:55 WBC 14.6 H RBC 4.48 Hgb 13.2 Hct 39.3 MCV 87.7 MCH 29.6 MCHC 33.7 RDW 13.5 Plt Count 424 H Neut % (Auto) 80.8 H Lymph % (Auto) 12.7 L [place] % (Auto) 5.7 Eos % (Auto) 0.1 L Baso % (Auto) 0.7 Neut # (Auto) 62394 H Lymph # (Auto) 1900 [place] # (Auto) 800 Eos # (Auto) 0 Baso # (Auto) 100 Sodium 139 Potassium 3.7 Chloride 101 Carbon Dioxide 24 BUN 19 H Creatinine 0.75 Estimated GFR > 60 BUN/Creatinine Ratio 25.3 H Glucose 118 H Lactate Calcium 9.3 Total Bilirubin AST ALT Alkaline Phosphatase Total Protein Albumin Globulin Albumin/Globulin Ratio Lipase Urine RBC Urine WBC Ur Squamous Epith Cells Urine Bacteria Urine Mucus Ur Culture Indicated? Vol Urine Centrifuged [facility] Medical History (Updated 06/13/24 @ 00:53 by Osmany Peterson MD) PTSD (post-traumatic stress disorder) (~2008) Anxiety (~2019) Surgical History (Updated 06/23/21 @ 19:03 by Esther Saenz) Anesthesia History of appendectomy (~1994) Family History (Updated 06/23/21 @ 19:04 by Esther Saenz) Grandfather Skin cancer Grandfather Stroke Social History household members: spouse Smoking Status: Current every day smoker alcohol intake: current Assessment & Plan Assessment & Plan narrative: Small bowel obstruction. - failed conservative management, gastrograffin study today showing persistent obstruction. surgery taking to the OR this evening. - discussed with surgeon today. Leukocytosis. - continue to follow, likely due to obstruction, continued IV Fluids today. - UA negative. Right 3.9 cm breast mass. Per the patient's report the patient states that she is aware of this mass. Recommendation is to follow-up as outpatient. DVT dehydration. IV fluid. DVT prophylaxis SCDs and early ambulation. Code CODE STATUS full code. Disposition likely home, timing unclear and depending on surgery findings and recovery. Time-Based Coding :: [TOTAL MINUTES] spent with patient and on the chart (including review of chart, obtaining history, exam, reviewing outside data, placing orders, documenting exam and treatment plan, and counseling patient) on [DATE]. Quality VTE Deep Vein Thrombosis/Pulmonary Embolism Present on Admission: No
--- NOTE | 2024-06-13 18:30 | P.HP_ITS ---
History of Present Illness History of Present Illness Date Patient Seen: 06/13/24 Chief complaint: abd pain vomiting Narrative: Per overnight provider, 44-year-old female with past medical history of appendectomy done 25 years ago and a known right breast mass presents with a complaint of nausea, vomiting and abdominal pain. Per the patient's report, the patient was seen at [facility] ER yesterday. The patient had an ultrasound the gallbladder and some lab work which were reported as to be negative. The patient went home and continue have nausea non bloody vomiting as well as abdominal pain. The patient denies any fever, GI bleed, nausea chest pain, shortness of breath, diarrhea or syncope. In the emergency room, the patient was hemodynamically stable. Labs shows a WBC of 15,[address] abdomen shows signs of small bowel obstruction. The patient was given IV fluid and IV antibiotic emetics. General surgery consulted and recommended to admit the patient here. NG tube was also placed.] COUNT INCLUDES THE [facility] Medical History (Updated 06/13/24 @ 00:53 by Osmany Peterson MD) PTSD (post-traumatic stress disorder) (~2008) Anxiety (~2019) Surgical History (Updated 06/23/21 @ 19:03 by Esther Saenz) Anesthesia History of appendectomy (~1994) Family History (Updated 06/23/21 @ 19:04 by Esther Saenz) Grandfather Skin cancer Grandfather Stroke Social History household members: spouse Smoking Status: Current every day smoker alcohol intake: current Meds Home Medications and Allergies Home Medications Medication Instructions Recorded Confirmed Type Adderall XR 15 mg PO DAILY 06/13/24 06/13/24 History Allergies Allergy/AdvReac Type Severity Reaction Status Date / Time No Known Drug Allergies Allergy Unverified 06/24/21 08:41 Review of Systems Review of Systems Narrative: All other systems reviewed with the patient and are negative unless otherwise stated. Exam Vital Signs (past 8 hours): - 06/13/24 17:00 Temperature 98.7 F Pulse Rate 111 H Respiratory Rate 16 Blood Pressure 138/94 H Pulse Oximetry 93 Oxygen Flow Rate 0 Oxygen Delivery Method Room Air Oxygen Flow Rate 0 Narrative Exam Narrative: Physical Exam: GENERAL: NG in place, appears unfomortable, frequent shifting. HEENT: Nonicteric sclerae, PERRLA, EOMI. Oropharynx clear. Moist mucous membranes. Conjunctivae appear well perfused. HEART: Regular rate and rhythm without murmurs. No lower extremities edema. LUNGS: Clear to auscultation bilaterally. No wheezing, crackles or rhonchi ABDOMEN: Soft, positive bowel sounds, nontender. SKIN: No rash, no excessive bruising, petechiae, or purpura. NEUROLOGIC: AxO x 3. Cranial nerves II-XII intact without motor/sensory deficit. Objective Labs 06/13/24 05:55 06/13/24 05:55 Labs: Laboratory Results - last 24 hr 06/12/24 06/12/24 06/13/24 21:25 21:36 00:15 WBC 15.9 H RBC 4.99 Hgb 14.6 Hct 43.6 MCV 87.4 MCH 29.2 MCHC 33.4 RDW 13.2 Plt Count 480 H Neut % (Auto) 88.4 H Lymph % (Auto) 8.6 L [place] % (Auto) 2.6 L Eos % (Auto) 0.1 L Baso % (Auto) 0.3 Neut # (Auto) 72065 H Lymph # (Auto) 1400 [place] # (Auto) 400 Eos # (Auto) 0 Baso # (Auto) 0 Sodium 137 Potassium 3.8 Chloride 101 Carbon Dioxide 22 BUN 15 Creatinine 0.69 Estimated GFR > 60 BUN/Creatinine Ratio 21.7 Glucose 132 H Lactate 1.0 Calcium 9.2 Total Bilirubin 0.7 AST 30 ALT 28 Alkaline Phosphatase 98 Total Protein 8.6 H Albumin 4.7 Globulin 3.9 Albumin/Globulin Ratio 1.2 Lipase 42 Urine RBC 0-1/hpf Urine WBC 0-1/hpf Ur Squamous Epith Cells 0-1 /hpf Urine Bacteria Few (2-10) H Urine Mucus 2+ H Ur Culture Indicated? Cult not indicated Vol Urine Centrifuged 10ml (spun) 06/13/24 05:55 WBC 14.6 H RBC 4.48 Hgb 13.2 Hct 39.3 MCV 87.7 MCH 29.6 MCHC 33.7 RDW 13.5 Plt Count 424 H Neut % (Auto) 80.8 H Lymph % (Auto) 12.7 L [place] % (Auto) 5.7 Eos % (Auto) 0.1 L Baso % (Auto) 0.7 Neut # (Auto) 18703 H Lymph # (Auto) 1900 [place] # (Auto) 800 Eos # (Auto) 0 Baso # (Auto) 100 Sodium 139 Potassium 3.7 Chloride 101 Carbon Dioxide 24 BUN 19 H Creatinine 0.75 Estimated GFR > 60 BUN/Creatinine Ratio 25.3 H Glucose 118 H Lactate Calcium 9.3 Total Bilirubin AST ALT Alkaline Phosphatase Total Protein Albumin Globulin Albumin/Globulin Ratio Lipase Urine RBC Urine WBC Ur Squamous Epith Cells Urine Bacteria Urine Mucus Ur Culture Indicated? Vol Urine Centrifuged Assessment & Plan Assessment & Plan narrative: Small bowel obstruction. - failed conservative management, gastrograffin study today showing persistent obstruction. surgery taking to the OR this evening. NPO & IV fluids were given over the course of today along with continued treatment of nausea, and frequent changes to IV narcotic pain medications to control her pain. - discussed with surgeon today. - electrolytes are otherwise unremarkable. Leukocytosis. - continue to follow, likely due to obstruction, continued IV Fluids today. - UA negative. Right 3.9 cm breast mass. Per the patient's report the patient states that she is aware of this mass. Recommendation is to follow-up as outpatient. dehydration. IV fluid. DVT prophylaxis SCDs CODE STATUS full code. Disposition likely home, timing unclear and depending on surgery findings and recovery. Time-Based Coding :: [TOTAL MINUTES] spent with patient and on the chart (including review of chart, obtaining history, exam, reviewing outside data, placing orders, documenting exam and treatment plan, and counseling patient) on [DATE]. Quality VTE Deep Vein Thrombosis/Pulmonary Embolism Present on Admission: No
--- NOTE | 2024-06-13 18:36 | SUR.HOLD ---
Patient denied need for test. ADVERTISING SALES EXECUTIVE, Claudette Cerda, notified.
--- NOTE | 2024-06-13 19:04 | SUR.OPER ---
PT ARRIVED TO OR WITH NG TUBE IN RIGHT NARES PATENT AND DRAINING WHEN CONNECTED TO SUCTION.
[2024-06-13] MEDS: BUPIVACAINE 0.5% W/ EPI (PF) 30 ML VIAL INJ (19:21)
--- NOTE | 2024-06-13 19:54 | PM.OP.1 ---
Operative Date/Time/Diagnoses Date of procedure: 06/13/24 Time of procedure: 19:54 Pre-op diagnosis: Small bowel obstruction Procedure & Clinicians Procedure: Exploratory laparotomy and lysis of adhesions Same procedure as scheduled: Yes Surgeon: Jarrett Hernandez Anesthesia Type: General Operative Notes Procedure in detail: The patient was given Zosyn. The patient was brought to the operating room and placed on the table in the supine position. General endotracheal anesthesia was induced. The abdomen was prepped and draped in the usual fashion and a time-out was performed. We made a low midline incision. We divided down through the subcutaneous adipose tissue with cautery. We divided the anterior sheath and posterior sheath with cautery. The peritoneum was divided with Metzenbaum scissors between tonsil clamps. There was a moderate amount of peritoneal fluid it was suctioned. We then examined the small bowel. There were clear dilated loops as well as decompressed loops. In the process of running the bowel to try to find the transition point it seems that a thin band of adhesion was lysed in the process. The transition point could be seen in the mid ileum where a mild indentation and some erythema marked the location of the adhesive band. The bowel was able to be run from the jejunum to the ileocecal valve. We then injected some local into the fascia and closed the fascia with running 0 PDS suture. The skin was closed with multiple interrupted 3-0 Vicryl dermal sutures followed by a running 4-0 Monocryl subcuticular closure. Sterile dressings were applied. EBL: 15 mL Specimen: None Post-operative Condition: stable Disposition: PACU
[2024-06-13] MEDS: hydrOXYzine 50 MG/ML INJ 25 MG IM (20:29)
--- NOTE | 2024-06-13 20:38 | SUR.PHASEI ---
Report called to Marylou.
[2024-06-13] MEDS: LACTATED RINGERS 895 ML IV (21:12)
--- NOTE | 2024-06-13 21:17 | SUR.PHASEI ---
NG removed per Dr Hernandez order, relayed by ANDERS Wilkins. Tube was removed without difficulty.
[2024-06-13] MEDS: ACETAMINOPHEN 325 MG TABLET 650 MG PO (22:42)
--- NOTE | 2024-06-13 23:45 | PC.NURSE ---
Addendum entered by Marylou Cardona R.N. 06/14/24 00:55: correction: Fall risk score is moderate but patient agreeable to calling for assistance and is using call light appropriately so alarm is not in use at this time. Original Note: Patient returned from surgery around 2100. Is alert and oriented. Breath sounds CTA with RA sat of 96%; placed on continuous oximetry. HRR. Denied nausea and very pleased that NG was able to be removed in PACU. BT hypoactive when assessed but has since had 2 loose small BM's. Aquacel dressing to abdomen is CDI. Did report 4/10 pain across lower abdomen and was medicated with Tylenol. Has voided and denied any dysuria. Is able to turn herself in bed. Assisted to BSC with SBA due to reported generalized weakness. Is wearing bilateral calf SCD's. Dr. Hernandez contacted regarding diet as order is for strict NPO status. Reported to him that patient has had BM already since return from surgery and he gave order to start clear liquids; patient instructed to go slowly with po intake. Fall risk score is low.
[2024-06-14] MEDS: KETOROLAC 30 MG/ML VIAL 15 MG IV ×2 (01:44→09:42)
[2024-06-14] MEDS: HYDROMORPHONE 0.5 MG INJ IV ×3 (02:50→21:24)
[2024-06-14 03:00] VITALS: BP 128/66; PULSE 96; RESP 18; TEMP 37; O2SAT 98
[2024-06-14 03:28] LABS: Adenovirus F 40/41 Not Detected (Not Detect); Astrovirus Not Detected (Not Detect); Campylobacter Not Detected (Not Detect); Clostridium difficile toxin AB Not Detected (Not Detect); Cryptosporidium Not Detected (Not Detect); Cyclospora cayetanensis Not Detected (Not Detect); Entamoeba histolytica Not Detected (Not Detect); Enteroaggregative E.coli Not Detected (Not Detect); Enteropathogenic E.coli Not Detected (Not Detect); Enterotoxigenic E.coli It/st Not Detected (Not Detect); Giardia lamblia Not Detected (Not Detect); Norovirus GI/GII Detected (Not Detect); Plesiomonsa shigelloides Not Detected (Not Detect); Rotavirus A Not Detected (Not Detect); Salmonella Not Detected (Not Detect); Sapovirus Not Detected (Not Detect); Shiga-like toxin-prod E.coli Not Detected (Not Detect); Shigella/Enteroinvasive E.coli Not Detected (Not Detect); Vibrio Not Detected (Not Detect); Vibrio cholerae Not Detected (Not Detect); Yersinia enterocolitica Not Detected (Not Detect)
[2024-06-14 06:15] LABS: Add Manual Diff / Slide Review NO; Basophils Absolute Auto 0 /uL (0-100); Basophils Percent Auto 0.5 % (0-2); Eosinophils Absolute Auto 0 /uL (0-450); Eosinophils Percent Auto 0.3 % (2-4); Hematocrit 33.4 % (36-46); Hemoglobin 11.4 g/dL (12.0-16.0); Lymphocytes Absolute Auto 900 /uL (1100-4500); Lymphocytes Percent Auto 10.2 % (25-40); Mean Corpuscular Hemoglobin 29.9 PG (26-34); Mean Corpuscular Volume 87.9 fL (80-100); Monocytes Absolute Auto 700 /uL (0-900); Monocytes Percent Auto 8.2 % (3-14); Neutrophils Absolute Auto 6800 /uL (1500-7000); Neutrophils Percent Auto 80.8 % (50-75); Platelet Count 308 X10^3/uL (150-400); Red Cell Distribution Width 13.3 % (11.6-14.8); White Blood Cell Count 8.5 X10^3/uL (4.5-11.0)
[2024-06-14 06:24] LABS: BUN Creatinine Ratio 24.7 (6-22); Blood Urea Nitrogen 18 mg/dL (7-17); Calcium 7.9 mg/dL (8.4-10.2); Carbon Dioxide 29 mmol/L (22-32); Chloride 106 mmol/L (98-107); Estimated Glomerular Filt Rate > 60 mL/min (>60); Glucose 136 mg/dL (70-100); HEMOLYSIS < 15 (0-50); Sodium 140 mmol/L (137-145)
[2024-06-14 08:00] VITALS: BP 101/58; PULSE 84; RESP 14; TEMP 37.7; O2SAT 94
[2024-06-14] MEDS: POTASSIUM CHLORIDE 20 MEQ TAB 40 MEQ PO ×2 (11:37→18:06)
[2024-06-14] MEDS: OXYCODONE IR 5 MG TABLET PO ×2 (11:37→18:07)
[2024-06-14 12:00] VITALS: BP 133/58; PULSE 93; RESP 16; TEMP 37; O2SAT 94
--- NOTE | 2024-06-14 14:09 | CM.DPC ---
DCP Cont. Reviewed EMR and team rounds for status updates. Pt is post-op day 1 from a laparotomy for lysis of adhesions/post bowl obstruction. Pt is slowly advancing in diet, pain is being managed. Monitoring for any final d/c assistance needs.
[2024-06-14] MEDS: KETOROLAC 10 MG TABLET PO (15:16)
[2024-06-14 16:00] VITALS: BP 104/69; PULSE 104; RESP 16; TEMP 36.9; O2SAT 100
--- NOTE | 2024-06-14 16:28 | PM.PN.IH.1 ---
Subjective Subjective Date Patient Seen: 06/14/24 Time Patient Seen: 16:28 Interval history: Doing well Tolerating some regular diet She has had some bowel function Moderate incisional pain Exam Vital Signs (past 8 hours): - 06/14/24 12:00 Temperature 98.6 F Pulse Rate 93 H Respiratory Rate 16 Blood Pressure 133/58 L Pulse Oximetry 94 Oxygen Flow Rate 0 Oxygen Delivery Method Room Air Oxygen Flow Rate 0 Const General: healthy appearing and No acute distress Objective Labs 06/14/24 05:20 06/14/24 05:20 Labs: Laboratory Results - last 24 hr 06/14/24 06/14/24 01:50 05:20 WBC 8.5 RBC 3.80 L Hgb 11.4 L Hct 33.4 L MCV 87.9 MCH 29.9 MCHC 34.0 RDW 13.3 Plt Count 308 Neut % (Auto) 80.8 H Lymph % (Auto) 10.2 L [place] % (Auto) 8.2 Eos % (Auto) 0.3 L Baso % (Auto) 0.5 Neut # (Auto) 6800 Lymph # (Auto) 900 L [place] # (Auto) 700 Eos # (Auto) 0 Baso # (Auto) 0 Sodium 140 Potassium 3.0 L Chloride 106 Carbon Dioxide 29 BUN 18 H Creatinine 0.73 Estimated GFR > 60 BUN/Creatinine Ratio 24.7 H Glucose 136 H Calcium 7.9 L Magnesium 2.0 Stl C. cayetanensis PCR Not detected Stool Rotavirus (PCR) Not detected Stool Adenovirus (PCR) Not detected Stool Astrovirus (PCR) Not detected Stool Cryptosporidium PCR Not detected Stl E.coli Shiga Tox PCR Not detected St Sh/Enteroin Ecoli PCR Not detected Stl Enterotoxigenic E PCR Not detected Stool EPEC (PCR) Not detected Stl E. histolytica PCR Not detected Stool Giardia Lamblia PCR Not detected Stool Sapovirus (PCR) Not detected Stl P. shigelloides PCR Not detected St Y.enterocolitica PCR Not detected Stool Vibrio (PCR) Not detected Stl Vibrio cholerae PCR Not detected Stl Enteroaggr Ecoli PCR Not detected Stl Norovirus GI/GII PCR Detected Campylobacter (PCR) Not detected C. difficile Tox (PCR) Not detected Salmonella (PCR) Not detected [facility] Medical History (Updated 06/13/24 @ 00:53 by Osmany Peterson MD) PTSD (post-traumatic stress disorder) (~2008) Anxiety (~2019) Surgical History (Updated 06/23/21 @ 19:03 by Esther Saenz) Anesthesia History of appendectomy (~1994) Family History (Updated 06/23/21 @ 19:04 by Esther Saenz) Grandfather Skin cancer Grandfather Stroke Social History household members: spouse Smoking Status: Current every day smoker alcohol intake: current Assessment & Plan Assessment and plan (1) Small bowel obstruction: Status: Acute Plan Doing well Possible discharge tomorrow AM Time-Based Coding :: [TOTAL MINUTES] spent with patient and on the chart (including review of chart, obtaining history, exam, reviewing outside data, placing orders, documenting exam and treatment plan, and counseling patient) on [DATE]. Quality VTE Deep Vein Thrombosis/Pulmonary Embolism Present on Admission: No [facility]H PROFEE Nurse Advocate Document charge(s): No
--- NOTE | 2024-06-14 18:11 | PM.PN.1 ---
Subjective Subjective Interval history: 44 F admitted with bowel obstruction s/p open CLARE. She is ambulating the halls today, complains of R shoulder pain today. No nausea. Had multiple small liquid bowel movements, PCR was sent and was positive for norovirus. She has some abdominal soreness today, improved with pain medications overall. Advancing diet slowly per surgery. Exam Vital Signs (past 8 hours): - 06/14/24 12:00 06/14/24 16:00 Temperature 98.6 F 98.5 F Pulse Rate 93 H 104 H Respiratory Rate 16 16 Blood Pressure 133/58 L 104/69 Pulse Oximetry 94 100 Oxygen Flow Rate 0 0 Oxygen Delivery Method Room Air Oxygen Flow Rate 0 Narrative Exam Narrative: Physical Exam: GENERAL: NG in place, appears unfomortable, frequent shifting. HEENT: Nonicteric sclerae, PERRLA, EOMI. Oropharynx clear. Moist mucous membranes. Conjunctivae appear well perfused. HEART: Regular rate and rhythm without murmurs. No lower extremities edema. LUNGS: Clear to auscultation bilaterally. No wheezing, crackles or rhonchi ABDOMEN: Soft, positive bowel sounds, nontender. SKIN: No rash, no excessive bruising, petechiae, or purpura. NEUROLOGIC: AxO x 3. Cranial nerves II-XII intact without motor/sensory deficit. Objective Labs 06/14/24 05:20 06/14/24 05:20 Labs: Laboratory Results - last 24 hr 06/14/24 06/14/24 01:50 05:20 WBC 8.5 RBC 3.80 L Hgb 11.4 L Hct 33.4 L MCV 87.9 MCH 29.9 MCHC 34.0 RDW 13.3 Plt Count 308 Neut % (Auto) 80.8 H Lymph % (Auto) 10.2 L [place] % (Auto) 8.2 Eos % (Auto) 0.3 L Baso % (Auto) 0.5 Neut # (Auto) 6800 Lymph # (Auto) 900 L [place] # (Auto) 700 Eos # (Auto) 0 Baso # (Auto) 0 Sodium 140 Potassium 3.0 L Chloride 106 Carbon Dioxide 29 BUN 18 H Creatinine 0.73 Estimated GFR > 60 BUN/Creatinine Ratio 24.7 H Glucose 136 H Calcium 7.9 L Magnesium 2.0 Stl C. cayetanensis PCR Not detected Stool Rotavirus (PCR) Not detected Stool Adenovirus (PCR) Not detected Stool Astrovirus (PCR) Not detected Stool Cryptosporidium PCR Not detected Stl E.coli Shiga Tox PCR Not detected St Sh/Enteroin Ecoli PCR Not detected Stl Enterotoxigenic E PCR Not detected Stool EPEC (PCR) Not detected Stl E. histolytica PCR Not detected Stool Giardia Lamblia PCR Not detected Stool Sapovirus (PCR) Not detected Stl P. shigelloides PCR Not detected St Y.enterocolitica PCR Not detected Stool Vibrio (PCR) Not detected Stl Vibrio cholerae PCR Not detected Stl Enteroaggr Ecoli PCR Not detected Stl Norovirus GI/GII PCR Detected Campylobacter (PCR) Not detected C. difficile Tox (PCR) Not detected Salmonella (PCR) Not detected [facility] Medical History (Updated 06/13/24 @ 00:53 by Osmany Peterson MD) PTSD (post-traumatic stress disorder) (~2008) Anxiety (~2019) Surgical History (Updated 06/23/21 @ 19:03 by Esther Saenz) Anesthesia History of appendectomy (~1994) Family History (Updated 06/23/21 @ 19:04 by Esther Saenz) Grandfather Skin cancer Grandfather Stroke Social History household members: spouse Smoking Status: Current every day smoker alcohol intake: current Assessment & Plan Assessment & Plan narrative: Small bowel obstruction. - failed conservative management, gastrograffin study showed persistent obstruction. POD #1 s/p open CLARE and doing well after. - discussed with surgeon today. Advancing diet today, possible discharge home tomorrow if otherwise doing well. - electrolytes are otherwise unremarkable. - ordered oral pain medications today Norovirus - unclear if this has any role in her presentation at this time - no significant abdominal pain, patient on patient's history likely present prior to admission. - supportive care at this time. Right 3.9 cm breast mass. Per the patient's report the patient states that she is aware of this mass. Recommendation is to follow-up as outpatient. Hypokalemia - replete as needed, likely due to decreased intake, will recheck tomorrow. DVT prophylaxis SCDs CODE STATUS full code. Disposition likely home, timing unclear and depending on surgery findings and recovery. Time-Based Coding :: [TOTAL MINUTES] spent with patient and on the chart (including review of chart, obtaining history, exam, reviewing outside data, placing orders, documenting exam and treatment plan, and counseling patient) on [DATE]. Quality VTE Deep Vein Thrombosis/Pulmonary Embolism Present on Admission: No
[2024-06-14 20:00] VITALS: BP 121/69; PULSE 88; RESP 18; TEMP 37.2; O2SAT 94
[2024-06-14] MEDS: ONDANSETRON 4 MG/2 ML INJ IV (21:24)
[2024-06-14 22:10] LABS: HEMOLYSIS < 15 (0-50); Potassium 3.4 mmol/L (3.4-5.1)
[2024-06-15] VITALS: BP 114/61; PULSE 90; RESP 18; TEMP 37.4; O2SAT 94
[2024-06-15] MEDS: ACETAMINOPHEN 325 MG TABLET 650 MG PO (00:31)
[2024-06-15] MEDS: OXYCODONE IR 5 MG TABLET PO ×2 (00:32→04:03)
[2024-06-15] MEDS: KETOROLAC 10 MG TABLET PO ×2 (00:50→09:59)
[2024-06-15 04:00] VITALS: BP 108/71; PULSE 93; RESP 18; TEMP 37.2; O2SAT 95
[2024-06-15 06:17] LABS: Add Manual Diff / Slide Review NO; Basophils Absolute Auto 0 /uL (0-100); Eosinophils Absolute Auto 200 /uL (0-450); Eosinophils Percent Auto 4.3 % (2-4); Hematocrit 32.6 % (36-46); Hemoglobin 10.9 g/dL (12.0-16.0); Lymphocytes Absolute Auto 1300 /uL (1100-4500); Lymphocytes Percent Auto 28.1 % (25-40); Mean Corpuscular HGB Conc 33.4 % (30-36); Mean Corpuscular Hemoglobin 29.7 PG (26-34); Monocytes Absolute Auto 500 /uL (0-900); Monocytes Percent Auto 9.6 % (3-14); Neutrophils Absolute Auto 2700 /uL (1500-7000); Platelet Count 250 X10^3/uL (150-400); Red Blood Cell Count 3.66 X10^6/uL (4.0-5.2); White Blood Cell Count 4.8 X10^3/uL (4.5-11.0)
[2024-06-15 06:41] LABS: BUN Creatinine Ratio 17.9 (6-22); Blood Urea Nitrogen 12 mg/dL (7-17); Calcium 8.3 mg/dL (8.4-10.2); Carbon Dioxide 31 mmol/L (22-32); Chloride 101 mmol/L (98-107); Estimated Glomerular Filt Rate > 60 mL/min (>60); Glucose 114 mg/dL (70-100); HEMOLYSIS < 15 (0-50); Magnesium 1.8 mg/dL (1.6-2.3); Potassium 3.5 mmol/L (3.4-5.1); Sodium 135 mmol/L (137-145)
[2024-06-15 08:00] VITALS: BP 122/50; PULSE 84; RESP 16; TEMP 37.3; O2SAT 94
--- NOTE | 2024-06-15 10:52 | PM.DS.IH.1 ---
History of Present Illness History of Present Illness Chief complaint: abd pain vomiting Discharge Providers Provider Date of admission: 06/13/24 02:31 Discharge Date: 06/15/24 Primary care physician: Doctor Juan MD Consults: 06/13/24 08:19 Consult to General Surgery Routine Comment: Consulting Provider: Anival Hanna Reason for consultation: bowel obstruction Discharge provider: Jarrett Hernandez MD Summary Hospital Course Discharge Diagnosis: Small bowel obstruction Norovirus infection Hospital Course: The patient was admitted with a small-bowel obstruction with a possibility of a closed loop obstruction based on CT. She was taken to the operating room for an exploratory laparotomy. See the office note for details. She recovered bowel function right relatively rapidly but was found to be positive for norovirus. Her diet was advanced to regular and she was discharged on postop day 2. Exam Vital Signs (past 8 hours): - 06/15/24 04:00 06/15/24 08:00 Temperature 99.0 F 99.1 F Pulse Rate 93 H 84 Respiratory Rate 18 16 Blood Pressure 108/71 122/50 L Pulse Oximetry 95 94 Oxygen Flow Rate 0 0 Oxygen Delivery Method Room Air Oxygen Flow Rate 0 Const General: healthy appearing Objective Labs 06/15/24 05:22 06/15/24 05:22 Labs: Laboratory Results - last 24 hr 06/14/24 06/15/24 21:55 05:22 WBC 4.8 RBC 3.66 L Hgb 10.9 L Hct 32.6 L MCV 89.0 MCH 29.7 MCHC 33.4 RDW 13.0 Plt Count 250 Neut % (Auto) 57.0 D Lymph % (Auto) 28.1 [place] % (Auto) 9.6 Eos % (Auto) 4.3 H Baso % (Auto) 1.0 Neut # (Auto) 2700 Lymph # (Auto) 1300 [place] # (Auto) 500 Eos # (Auto) 200 Baso # (Auto) 0 Sodium 135 L Potassium 3.4 3.5 Chloride 101 Carbon Dioxide 31 BUN 12 Creatinine 0.67 Estimated GFR > 60 BUN/Creatinine Ratio 17.9 Glucose 114 H Calcium 8.3 L Magnesium 1.8 PFSH Medical History (Updated 06/13/24 @ 00:53 by Osmany Peterson MD) PTSD (post-traumatic stress disorder) (~2008) Anxiety (~2019) Surgical History (Updated 06/23/21 @ 19:03 by Esther Saenz) Anesthesia History of appendectomy (~1994) Family History (Updated 06/23/21 @ 19:04 by Esther Saenz) Grandfather Skin cancer Grandfather Stroke Social History household members: spouse Smoking Status: Current every day smoker alcohol intake: current Discharge Plan Discharge Plan Patient Disposition: Home Provider Discharge Comment: No lifting greater than 20 lb for 2 weeks. Okay to remove the outer dressing and shower. Steri-Strips can get wet in the shower. Remove the Steri-Strips after 5-7 days. Discharge orders & Medications Prescriptions: New hydrocodone-acetaminophen 5-325 mg tablet 1 tab PO Q8H PRN (Reason: pain) Qty: 10 0RF Continued Adderall XR 15 mg PO DAILY Follow up/Referrals: Juan,, [Primary Care Provider] - Visit Report/Discharge Packet Stand Alone Forms: Patient Portal/API, Stroke Signs & Symptoms Discharge Data Primary Care Provider: Doctor Juan Quality VTE Deep Vein Thrombosis/Pulmonary Embolism Present on Admission: No IH PROFEE Charge Codes Discharge inpatient/observation: [id number]
--- NOTE | 2024-06-15 11:07 | CM.DPNOTE ---
DCP Continued: Reviewed EMR and team rounds for pt?s medical status. Per provider, pt cleared to discharge home if tolerating advancing diet. No discharge needs identified at this time. Plan: Discharge orders are in, Anticipating dc home with spouse when medically stable. CM Team will continue to follow for coordination of discharge plans. ISABELLA Peck
--- NOTE | 2024-06-15 12:55 | PM.CALLCOV.1 ---
Call Coverage Note Note Narrative of Care Provided: Patient discharged by surgeon this afternoon. No additional recommendations on discharge from medicine service.
--- NOTE | 2024-06-15 13:09 | PC.NURSE ---
Discharge Day shift: Pt leaving via private vehicle with spouse, W/C down to car. Pt took belongings with her, pt was educated, IV removed, pt stable and A&O x 4.
== END 2024-06-15 12:55 | disposition home or self-care (01) | DRG 336 ==
LOC: ED 06-13 02:24 → AC 06-13 02:32
PROVIDERS: Internal Medicine; Surgery; Admitting Provider Internal Medicine; Emergency Provider Emergency Medicine; Referring Provider Emergency Medicine; Visit Provider Internal Medicine
PROC: 0DN80ZZ Release Small Intestine, Open Approach (ICD-10-PCS; CPT 49000; principal; 2024-06-13 16:30)
DX: K56.50 Intestinal adhesions [bands], unspecified as to partial versus complete obstruction (principal); A08.11 Acute gastroenteropathy due to Norwalk agent; N63.10 Unspecified lump in the right breast, unspecified quadrant; E86.0 Dehydration; F41.9 Anxiety disorder, unspecified; F17.290 Nicotine dependence, other tobacco product, uncomplicated; Z90.49 Acquired absence of other specified parts of digestive tract
CPT/HCPCS: 36415; 44005; 71045; 74018; 74177; 80048; 80053; 81003; 81015; 81025; 83605; 83690; 83735; 84132; 85025; 87507; 96374; 96375; 99222; 99284; 99291; J0330; J1171; J1885; J2060; J2250; J2270; J2405; J2543; J2704; J3010; J3410; J3490; Q9967

== ENCOUNTER → 2024-07-31 09:19 | Outpatient (CLI) | payer BC, SELFPAY ==
[2024-07-17 10:59] VITALS: BMI 32.8
--- NOTE | 2024-07-31 09:20 | DI.CT.S_ITS ---
PROCEDURE: CT ABDOMEN PELVIS W CON INDICATIONS: Lower incisional pain TECHNIQUE: After the administration of intravenous contrast, axial sections acquired from the lung bases to the pubic symphysis. Coronal and sagittal reformats were performed. For radiation dose reduction, the following was used: automated exposure control, adjustment of mA and/or kV according to patient size. COMPARISON: [facility], CT, CT ABDOMEN PELVIS W CON, 06/12/2024, 23:15. FINDINGS: Image quality: Diagnostic. Lower Chest: Bilateral lung bases are clear. Heart size is normal, no pericardial effusion. Small hiatal hernia. Lobulated mass in right chest wall/breast is again seen unchanged from prior study. ABDOMEN: Liver: No solid mass. Mild hepatic steatosis. Gallbladder: No radiopaque gallstones or wall thickening. Biliary ducts: No biliary dilation. Pancreas: No ductal dilation. Spleen: Size is within normal limits. Adrenal Glands: No adrenal nodules. Kidneys and Ureters: No hydronephrosis. No solid mass. No complex renal cystic lesion which requires follow up. Stomach and Bowel: Oral contrast is seen extending to ileocecal junction. No evidence of bowel obstruction or abnormal bowel wall thickening. Mild fecal stasis throughout the colon is seen. Sigmoid diverticulosis without CT evidence of acute diverticulitis. No abscess collection. Peritoneum: No abnormal intraperitoneal fluid. No free air. Ventral Wall: No significant ventral hernia. Surgical scar is seen. No abdominal wall fluid collection or mass. Abdominal Nodes: No retroperitoneal or mesenteric adenopathy by size criteria. Vessels: Aorta and inferior vena cava are normal in size. PELVIS: Pelvic Organs: Bulky appearing uterus is again seen unchanged from prior study with suggestion of uterine fibroids. Right-sided Bartholin's gland cyst is again seen and unchanged. Bladder: No bladder wall thickening, accounting for underdistention. Pelvic Nodes: No enlarged lymph nodes. Miscellaneous: No inguinal hernias are seen. Bones: No aggressive osseous abnormality. IMPRESSION: 1. Postsurgical changes in anterior abdominal wall. No soft tissue mass or drainable fluid collection. No abscess collection. 2. No bowel obstruction or abnormal bowel wall thickening. [id number] constipation. No abscess collection. No free fluid or free air. 3. Other chronic findings as described above, unchanged from previous study. Dictated by: Huy Qureshi M.D. on 07/31/2024 at 13:29 Approved by: Huy Qureshi M.D. on 07/31/2024 at 13:33
== END ==
PROVIDERS: PCP Family Medicine; Referring Provider Surgery; Visit Provider Surgery
DX: K59.00 Constipation, unspecified (principal); K57.30 Diverticulosis of large intestine without perforation or abscess without bleeding; N75.0 Cyst of Bartholin's gland; K76.0 Fatty (change of) liver, not elsewhere classified; K44.9 Diaphragmatic hernia without obstruction or gangrene; R91.8 Other nonspecific abnormal finding of lung field; R10.9 Unspecified abdominal pain
CPT/HCPCS: 74177; Q9967